=== PATIENT | female | born 1985 ===

== ENCOUNTER → 2022-05-10 08:15 | Outpatient (BNVA) | payer OTHER, SELFPAY | PROVIDERS: PCP Physician Assistant; Visit Provider Internal Medicine Endocrinology, Diabetes & Metabolism | DX: C73 Malignant neoplasm of thyroid gland (principal) | CPT/HCPCS: 99202 ==

== ENCOUNTER 2022-05-22 10:02 | Outpatient (REF) | payer OTHER, SELFPAY ==
[2022-05-22 11:45] LABS: Thyroid Stimulating Hormone 0.07 uIU/mL (0.32-4.0)
== END 2022-05-22 10:03 | disposition home or self-care (01) ==
LOC: HO.LAB 10:02
PROVIDERS: Visit Provider Internal Medicine Endocrinology, Diabetes & Metabolism
DX: C73 Malignant neoplasm of thyroid gland (principal)
CPT/HCPCS: 36415; 84439; 84443

== ENCOUNTER 2022-09-28 17:38 | Emergency (ER) | payer OTHER, SELFPAY ==
[2022-09-28 18:18] VITALS: BP 104/72; PULSE 86; RESP 18; TEMP 36.7; O2SAT 99; BMI 32.3
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
[2022-09-28] MEDS: Acetaminophen 325 MG TABLET 650 MG PO (18:34)
[2022-09-28] MEDS: Ketorolac Tromethamine 15 MG/ML VIAL IM (19:26)
== END 2022-09-28 19:35 | disposition home or self-care (01) ==
PROVIDERS: Emergency Provider Emergency Medicine
DX: Z04.1 Encounter for examination and observation following transport accident (principal); M54.50 Low back pain, unspecified
CPT/HCPCS: 96372; 99283; 99284; J1885

== ENCOUNTER 2022-10-06 11:59 | Emergency (ER) | payer OTHER, SELFPAY ==
[2022-10-06 12:08] VITALS: BP 107/56; PULSE 97; RESP 19; TEMP 36.6; O2SAT 98; BMI 32.7
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
== END 2022-10-06 12:34 | disposition home or self-care (01) ==
PROVIDERS: Emergency Provider Emergency Medicine
DX: Z04.1 Encounter for examination and observation following transport accident (principal); M54.50 Low back pain, unspecified
CPT/HCPCS: 99282

== ENCOUNTER 2023-06-27 08:33 | Emergency (ER) | payer MEDICAID, SELFPAY ==
[2023-06-27 09:07] VITALS: BP 114/71; PULSE 92; RESP 16; TEMP 36.5; O2SAT 98; BMI 31.3
--- NOTE | 2023-06-27 09:56 | ED_ITS ---
HPI - General Adult General Chief complaint: Upper Respiratory Symptoms Stated complaint: Headache, cough Time Seen by Provider: 06/27/23 09:46 Source: patient Mode of arrival: ambulatory Limitations: no limitations History of Present Illness HPI narrative: 37-year-old female history of JESIKA on CPAP, thyroid cancer, presents with fatigue, malaise, myalgias, congestion, intermittent headaches ( feel like her typical, no trauma, dizziness, vision changes or weakness), dry cough x4 days. 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 She reports she just feels very tired and like she has no energy. Took a COVID test on Saturday which was negative. Denies chest pain, shortness of breath, nausea, vomiting, abdominal pain, vision changes, dizziness, weakness, fevers and chills Related Data Home Medications Medication Instructions Recorded Confirmed cetirizine 10 mg tablet 10 mg PO DAILY 05/10/22 05/10/22 cholecalciferol (vitamin D3) 1,250 1,250 mcg PO QWEEK 05/10/22 05/10/22 mcg (50,000 unit) capsule clonazepam 0.5 mg tablet 0.5 mg PO DAILY PRN 05/10/22 05/10/22 divalproex 250 mg tablet,delayed 250 mg PO BID 05/10/22 05/10/22 release methocarbamol 500 mg tablet 500 mg PO 05/10/22 05/10/22 zolpidem 10 mg tablet 10 mg PO BEDTIME insomnia 05/10/22 05/10/22 Previous Rx's Medication Instructions Recorded levothyroxine 75 mcg tablet 75 mcg PO DAILY #30 tabs 05/22/22 cyclobenzaprine 5 mg tablet 5 mg PO TID PRN muscle spasm 7 09/28/22 days #21 tabs acetaminophen 325 mg capsule 325 mg PO Q4H PRN pain #30 caps 06/27/23 (Tylenol) albuterol sulfate 90 mcg/actuation 2 inh inhalation Q4-6H PRN 06/27/23 breath activated powder inhaler shortness of breath or wheezing #1 ea benzonatate 100 mg capsule 100 mg PO BID PRN cough #20 caps 06/27/23 prednisone 20 mg tablet 40 mg (2 x 20 mg) PO DAILY 5 days 06/27/23 #10 tabs Allergies Allergy/AdvReac Type Severity Reaction Status Date / Time cat dander Allergy Itching Verified 06/27/23 09:07 Review of Systems Review of Systems: Yes all other systems are reviewed and are negative [facility] Past Medical History Attestation statement: The following information was validated with the patient. Source: old records reviewed and nursing notes reviewed Medical History Thyroid cancer Surgical History History of thyroid surgery History of surgery Hx of cholecystectomy Family History Family History Mother Hypertension Father No known health problems Maternal Grandmother Hypertension Heart attack Social History Social History Household Members: Family Household Members Other:: 2 sons Alcohol intake: current Alcohol intake frequency: holidays/special occasions only Patient Tobacco Use Status: Never used Tobacco Advance Directives: No Advance Directives Information Provided: No Physical Exam ED Vital Signs: Vital Signs - 24 hr 06/27/23 09:07 Temperature 97.7 F Pulse Rate 92 Respiratory Rate 16 Blood Pressure 114/71 Pulse Oximetry 98 Oxygen Delivery Method Room Air BMI result Body Mass Index 31.3 vss Appearance: Alert.? Oriented X3.? No acute distress.? Head: Normocephalic, atraumatic, no step-offs or deformities Eyes: Pupils equal, round and reactive to light.? ENT: Pharynx normal.? Neck: Normal inspection.? Neck supple.? CVS: Normal heart rate and rhythm.? Pulses normal.? Respiratory: No respiratory distress.? Breath sounds normal.? Abdomen: Soft and nontender.? Skin: Skin warm and dry.? Normal skin color.? Normal skin turgor.? Extremities: No lower extremity edema.? No calf ttp. 5/5 strength to bilateral upper and lower extremities Neuro: Oriented X 3.? No motor deficit.? No sensory deficit. CN 2-12 intact Course Reevaluation(s) Reevaluation #1: Flu/COVID/RSV pending. Likely viral illness. Will call patient if results are positive. Educated patient on diagnosis and treatment plan, answered all question, patient verbalizes understanding. At this time patient will be discharged home, advised to return with new or worsening symptoms. Educated on worrisome signs and symptoms and when to return. At this time I feel comfortable discharge home. Time: 10:02 Reevaluation #2: + influenza patient called no answer --> no indication for tamifly sx > 48 hours no change in plan. Time: 10:30 Medical Decision Making Medical Decision Making [facility] Narrative: 37-year-old female presents with upper respiratory symptoms for the past 4 days. Physical exam benign Likely viral illness flu versus COVID versus RSV. Unlikely intracranial hemorrhage, stroke, posterior stroke, pneumonia, PE, ACS, dissection. Other differentials include bronchitis. Plan at this time viral testing Differential Diagnosis Differential Diagnoses: The differential diagnosis associated with the presentation includes Likely viral illness flu versus COVID versus RSV. Unlikely intracranial hemorrhage, stroke, posterior stroke, pneumonia, PE, ACS, dissection. Other differentials include bronchitis. Admission/Observation Consideration of admission/observation: Escalation of care including admission/observation considered No indication Lab Data [facility] Lab Attestation statement: I reviewed the patient's lab results. Labs: Lab Results 06/27/23 Range/Units 09:24 Influenza Type A (PCR) POSITIVE A (Negative) Influenza Type B (PCR) NEGATIVE (Negative) RSV RNA Qual (PCR) NEGATIVE (Negative) SARS-CoV-2 RNA (RT-PCR) NEGATIVE (Negative) External Record Review External record reviewed: Inpatient record, Office record, Outpatient record, Prior outpatient labs, Prior outpatient radiology, Primary care record and Outside ED record Prescription Management I considered prescription management with: Other (Prednisone, albuterol.) Chronic Conditions Patient?s care impacted by: Other (Thyroid cancer) Critical Care Time Critical Care Time Critical Care Time: No Discharge Plan Discharge Clinical Impression: Upper respiratory infection Patient Disposition: Home, Self-Care Instructions: Upper Respiratory Infection (ED), Viral Syndrome (ED) Additional Instructions: Take your medications as prescribed. If you were prescribed antibiotics today, it is important that you take your medication to their entirety, do not skip any doses, do not finish them early. Follow-up with your primary care provider this week. Return to the emergency department with new or worsening symptoms. Such as fevers, chills, chest pain, shortness of breath, nausea, vomiting, dizziness, headache, vision changes, lethargy In case of emergency call 911 Benzonatate Perles have been sent for cough. And so has albuterol. Prescriptions: New benzonatate 100 mg capsule 100 mg PO BID PRN (Reason: cough) Qty: 20 0RF albuterol sulfate 90 mcg/actuation aerosol powdr breath activated 2 inh inhalation Q4-6H PRN (Reason: shortness of breath or wheezing) Qty: 1 0RF prednisone 20 mg tablet 40 mg PO DAILY 5 Days Qty: 10 0RF acetaminophen [Tylenol] 325 mg capsule 325 mg PO Q4H PRN (Reason: pain) Qty: 30 0RF No Action levothyroxine 75 mcg tablet 75 mcg PO DAILY Qty: 30 5RF cyclobenzaprine 5 mg tablet 5 mg PO TID PRN (Reason: muscle spasm) 7 Days Qty: 21 0RF methocarbamol 500 mg tablet 500 mg PO cholecalciferol (vitamin D3) 1,250 mcg (50,000 unit) capsule 1,250 mcg PO QWEEK zolpidem 10 mg tablet 10 mg PO BEDTIME clonazepam 0.5 mg tablet 0.5 mg PO DAILY PRN divalproex 250 mg tablet,delayed release (DR/EC) 250 mg PO BID cetirizine 10 mg tablet 10 mg PO DAILY Referrals: Tra Dubon PA [Primary Care Provider] - 3 days Stand Alone Forms: Work/School Release Interventions: ED Discharge Assessment Last Done: 06/27/23 10:09 Discharge Date/Time: 06/27/23 10:10
[2023-06-27 10:25] LABS: Influenza A PCR POSITIVE (Negative); Influenza B PCR NEGATIVE (Negative); Resp Syncy Virus RNA Qual PCR NEGATIVE (Negative); SARS COV2 PCR INHOUSE NEGATIVE (Negative)
== END 2023-06-27 10:10 | disposition home or self-care (01) ==
PROVIDERS: Emergency Provider Emergency Medicine; PCP Physician Assistant
DX: J06.9 Acute upper respiratory infection, unspecified (principal); R51.9 Headache, unspecified; R05.9 Cough, unspecified; M79.10 Myalgia, unspecified site; Z11.52 Encounter for screening for COVID-19; Z20.822 Contact with and (suspected) exposure to COVID-19
CPT/HCPCS: 0241U; 99282; 99283

== ENCOUNTER 2024-01-26 09:16 | Emergency (ER) | payer OTHER, SELFPAY ==
[2024-01-26 09:30] VITALS: BP 101/67; PULSE 78; RESP 18; TEMP 36.8; O2SAT 100; BMI 34.3
--- NOTE | 2024-01-26 09:37 | ED_ITS ---
HPI - Eye Problem General Chief complaint: Eye Problems Stated complaint: r eye swelling Time Seen by Provider: 01/26/24 09:35 Source: patient Mode of arrival: ambulatory Limitations: no limitations History of Present Illness ED Provider: Kedar SINHA Narrative: Patient is a 38-year-old female presenting to the emergency department with complaint of right eye swelling, itching and drainage. Reports symptoms began on Saturday, saw PCP and was prescribed ofloxacin drops. Has been using these as prescribed but swelling worsened and I is still pruritic. Reports clear drainage from eye with crusting. Denies pain with eye movements. Denies changes in vision. Denies foreign body sensation. chief complaint: eye redness Onset (ago): day(s) Onset description: sudden Duration: constant Location: right eye Eye Symptoms: redness, itching and discharge Mechanism: none Associated symptoms: none Treatments Prior to Arrival: other Related Data Home Medications ?Medication ?Instructions ?Recorded ?Confirmed cetirizine 10 mg tablet 10 mg PO DAILY 05/10/22 05/10/22 cholecalciferol (vitamin D3) 1,250 1,250 mcg PO QWEEK 05/10/22 05/10/22 mcg (50,000 unit) capsule clonazepam 0.5 mg tablet 0.5 mg PO DAILY PRN 05/10/22 05/10/22 divalproex 250 mg tablet,delayed 250 mg PO BID 05/10/22 05/10/22 release methocarbamol 500 mg tablet 500 mg PO 05/10/22 05/10/22 zolpidem 10 mg tablet 10 mg PO BEDTIME insomnia 05/10/22 05/10/22 Previous Rx's ?Medication ?Instructions ?Recorded levothyroxine 75 mcg tablet 75 mcg PO DAILY #30 tabs 05/22/22 cyclobenzaprine 5 mg tablet 5 mg PO TID PRN muscle spasm 7 09/28/22 days #21 tabs acetaminophen 325 mg capsule 325 mg PO Q4H PRN pain #30 caps 06/27/23 (Tylenol) albuterol sulfate 90 mcg/actuation 2 inh inhalation Q4-6H PRN 06/27/23 breath activated powder inhaler shortness of breath or wheezing #1 ea benzonatate 100 mg capsule 100 mg PO BID PRN cough #20 caps 06/27/23 prednisone 20 mg tablet 40 mg (2 x 20 mg) PO DAILY 5 days 06/27/23 #10 tabs amoxicillin 875 mg-potassium 1 tab PO BID #14 tabs 01/26/24 clavulanate 125 mg tablet Allergies Allergy/AdvReac Type Severity Reaction Status Date / Time cat dander Allergy Itching Verified 01/26/24 09:33 Review of Systems Review of Systems: As per HPI. Yes all other systems are reviewed and are negative Constitutional: Constitutional: Reports as per HPI [facility] Past Medical History Medical History Thyroid cancer Surgical History History of thyroid surgery History of surgery Hx of cholecystectomy Family History Family History Mother Hypertension Father No known health problems Maternal Grandmother Hypertension Heart attack Social History Social History Household Members: Family Household Members Other:: 2 sons Alcohol intake: current Alcohol intake frequency: holidays/special occasions only Patient Tobacco Use Status: Never used Tobacco Advance Directives: No Advance Directives Information Provided: No Do you have a plan to hurt others: No Plan Physical Exam Vital Signs: Vital Signs: Last Vital Signs Temp 98.3 F 01/26/24 09:30 Pulse 78 01/26/24 09:30 Resp 18 01/26/24 09:30 BP 101/67 01/26/24 09:30 Pulse Ox 100 01/26/24 09:30 O2 Del Method Room Air 01/26/24 09:30 BMI result Body Mass Index 34.3 Vital signs have been reviewed and appear to be correct. Blood pressure normal. Heart rate normal. Respiratory rate normal. Temperature normal. Oxygen saturation normal. Const: General: cooperative, healthy appearing and no acute distress Or ientation/consciousness: oriented to person, oriented to place, oriented to time and patient oriented x3 Limitations: no limitations HEENT: Head: Yes normocephalic and Yes atraumatic Ears: external ears normal General nose exam: Normal external nose present Face and sinus: Yes face symmetric Mouth: oropharynx normal and moist mucous membranes Throat: Yes uvula midline Eyes: Periorbital: periorbital findings abnormal right periorbital swelling and periorbital erythema; no tenderness and no crepitus Conjunctivae: conjunctival abnormal right conjunctival injection diffuse Sclerae: sclerae normal Corneas: corneas normal Pupils: Equal, round and reactive pupils present EOM: EOMs intact bilaterally (No pain with EOMs) Neck: Neck: Yes normal visual inspection and Yes supple Resp: Effort & Inspection: normal respiratory effort and able to speak in complete sentences Auscultation: clear to auscultation bilaterally Cardio: Rate: regular rate Rhythm: regular rhythm Heart sounds: S1 normal heart sound present and S2 normal heart sound present GI: Palpation (GI): Soft to palpation and nontender Auscultation: normoactive bowel sounds : General: Yes no CVA tenderness Back/Spine/Pelvis: Back: no CVA tenderness Skin: General skin exam: elasticity normal and turgor normal Neuro: General: oriented to person, oriented to place, oriented to time, patient oriented x3, moves all extremities, no focal motor deficits and CN's II- XI intact bilaterally Cranial nerves: Yes Equal, round and reactive pupils present Cognition (Neuro): normal cognition Extrem: General: Yes full ROM, Yes no pedal edema and Yes no calf tenderness Psych: Mental Status: mental status grossly normal Affect: normal affect Thought process: Normal thought process present Medical Decision Making Medical Decision Making MDM Narrative: Patient is a 38-year-old female presenting to the emergency department with complaint of right eye swelling, itching and drainage. On exam patient is awake, A+Ox3, VS WNL, afebrile, normal neurological exam without focal deficits, physical exam findings as above. Given reported symptoms and physical exam findings, initial differential includes conjunctivitis, periorbital cellulitis. Do not suspect orbital cellulitis. Will treat patient with course of Augmentin. Advised patient to continue using ofloxacin drops that were previously prescribed to her. Recommended warm compresses several times daily and stressed the importance of good hand hygiene. Return precautions discussed at bedside. Follow-up with PCP, ophthalmology as needed. Patient verbalized understanding of and agreement with plan. Differential Diagnosis Differential Diagnoses: The differential diagnosis associated with the presentation includes As per MDM. External Record Review External record reviewed: Inpatient record, Office record and Outpatient record Prescription Management I considered prescription management with: Antibiotic Discharge Plan Discharge Clinical Impression: Preseptal cellulitis of right eye Patient Disposition: Home, Self-Care Instructions: Periorbital Cellulitis in Adults (ED) Additional Instructions: You were evaluated in the emergency department today for right eye swelling. You are being treated for a skin infection called periorbital cellulitis with antibiotics. Complete the full course of antibiotics as prescribed. Continue to use your previously prescribed eyedrops. Follow up with your primary care provider/ammunition specialist. Return to the emergency department if you develop worsening swelling, pain with eye movements, fever, changes in vision or any other new or concerning symptoms. Prescriptions: New amoxicillin-pot clavulanate 875-125 mg tablet 1 tab PO BID Qty: 14 0RF No Action levothyroxine 75 mcg tablet 75 mcg PO DAILY Qty: 30 5RF cyclobenzaprine 5 mg tablet 5 mg PO TID PRN (Reason: muscle spasm) 7 Days Qty: 21 0RF benzonatate 100 mg capsule 100 mg PO BID PRN (Reason: cough) Qty: 20 0RF albuterol sulfate 90 mcg/actuation aerosol powdr breath activated 2 inh inhalation Q4-6H PRN (Reason: shortness of breath or wheezing) Qty: 1 0RF prednisone 20 mg tablet 40 mg PO DAILY 5 Days Qty: 10 0RF acetaminophen [Tylenol] 325 mg capsule 325 mg PO Q4H PRN (Reason: pain) Qty: 30 0RF methocarbamol 500 mg tablet 500 mg PO cholecalciferol (vitamin D3) 1,250 mcg (50,000 unit) capsule 1,250 mcg PO QWEEK zolpidem 10 mg tablet 10 mg PO BEDTIME clonazepam 0.5 mg tablet 0.5 mg PO DAILY PRN divalproex 250 mg tablet,delayed release (DR/EC) 250 mg PO BID cetirizine 10 mg tablet 10 mg PO DAILY Referrals: Phil Reilly [Physician] - Print Language: Romanian
[2024-01-26 10:27] VITALS: BP 101/67; PULSE 78; RESP 18; TEMP 36.8; O2SAT 100
== END 2024-01-26 10:40 | disposition home or self-care (01) ==
PROVIDERS: Emergency Provider Emergency Medicine Emergency Medical Services
DX: L03.213 Periorbital cellulitis (principal); H57.11 Ocular pain, right eye
CPT/HCPCS: 99282

== ENCOUNTER 2024-03-31 15:17 | Outpatient (REF) | payer OTHER, SELFPAY ==
[2024-03-31 18:49] LABS: Free T4 (Free Thyroxine) 1.13 ng/dL (0.71-1.85); Thyroid Stimulating Hormone 0.08 uIU/mL (0.32-4.0)
== END 2024-03-31 15:18 | disposition home or self-care (01) ==
LOC: HO.LAB 15:17
PROVIDERS: PCP Physician Assistant; Visit Provider Internal Medicine Endocrinology, Diabetes & Metabolism
DX: C73 Malignant neoplasm of thyroid gland (principal)
CPT/HCPCS: 36415; 84439; 84443

== ENCOUNTER 2024-04-01 14:33 | Outpatient (AMB) | payer OTHER, SELFPAY ==
--- NOTE | 2024-04-01 14:38 | MHC.OFFVIS ---
Vital Signs 04/01/24 14:39 Height 4 ft 11 in Weight 165 lb 12.602 oz BMI 33.5 BP 102/72 Blood Pressure Location Rt brachial Position Sitting Pulse 93 Pulse Source Pulse Oximeter Intake Visit Reasons: post-surgical hypothyroidism-Conf Intake Note: Patient present today for post-surgical Hypothyroidism follow up. Associate Juvenile Court Judge Required: Yes Associate Juvenile Court Judge Language: Tool Keeper Services: Associate Juvenile Court Judge Present Associate Juvenile Court Judge Name: Donaldo Information Interpreted: non-clinical & clinical Accompanied by: Self / Same As Patient Allergies cat dander Allergy (Verified 04/01/24 14:40) Itching HPI Comments Details: 36 YO F with PMHx thyroid cancer who is seen in consultation at the request of his PCP for Hyothyroidism. 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 Denies + fatigue, -weight gain, -cold intolerance, -dry skin, -hair loss, -constipation. There is no hx of hyperlipidemia . Denies obstructive sx of goiter . Denies consuming any kelp or seaweed. Denies taking amiodarone. Denies current or desiring to become in near future. Compliance with meds and taken correctly: Menses: nl Biotin: Yes Labs: [facility] Medical History Thyroid cancer Surgical History History of thyroid surgery History of surgery Hx of cholecystectomy Family History Mother Hypertension Father No known health problems Maternal Grandmother Hypertension Heart attack Social History Household Members: Family Household Members Other:: 2 sons Alcohol intake: current Alcohol intake frequency: holidays/special occasions only Patient Tobacco Use Status: Never used Tobacco Physical Exam Vital Signs: BMI result Body Mass Index 33.5 Const Other: Healed scar status post left lobectomy. Right lobe without the presence of palpable nodules Assessment & Plan Assessment & Plan (1) Thyroid cancer: Code(s): C73 - Malignant neoplasm of thyroid gland Category: Medical Plan: Is a 38-year-old female status post left lobectomy with 1 mm micro papillary cancer. Currently on levothyroxine 75 mcg with suppressed TSH.? Right lobe containing sufficient tissue to maintain euthyroidism Plan is to have the patient check and confirm the dose of levothyroxine and if she is taking 75 mcg to hold levothyroxine and recheck TSH and free T4 in 4 weeks. If TSH rises, can reinitiate levothyroxine 50 mcg. If patient is on 88 mcg, I told her to call me and I will reduce the dose down to 75 recheck TSH in 4 weeks. We will also order neck ultrasound in light of the history of micro papillary cancer Orders: Orders Free T4 (Free Thyroxine) 4 Weeks C73 - Malignant neoplasm of thyroid gland Thyroid Stimulating Hormone 4 Weeks C73 - Malignant neoplasm of thyroid gland US thyroid Today C73 - Malignant neoplasm of thyroid gland Coding Level of Care Code Est Pt Level 3 (00594) Diagnoses Thyroid cancer C73
[2024-04-01 14:39] VITALS: BP 102/72; PULSE 93; BMI 33.5
== END 2024-04-01 15:04 | disposition home or self-care (01) ==
PROVIDERS: PCP Physician Assistant; Visit Provider Internal Medicine Endocrinology, Diabetes & Metabolism
DX: C73 Malignant neoplasm of thyroid gland (principal)
CPT/HCPCS: 99213

== ENCOUNTER → 2024-04-01 14:33 | Outpatient (BNVA) | payer OTHER, SELFPAY | PROVIDERS: PCP Physician Assistant; Visit Provider Internal Medicine Endocrinology, Diabetes & Metabolism | DX: C73 Malignant neoplasm of thyroid gland (principal) | CPT/HCPCS: 99212 ==

== ENCOUNTER 2024-04-14 13:26 | Outpatient (REF) | payer OTHER, SELFPAY | END 2024-04-14 13:27 | disposition home or self-care (01) | LOC: HO.US 13:26 | PROVIDERS: PCP Physician Assistant; Visit Provider Internal Medicine Endocrinology, Diabetes & Metabolism | DX: C73 Malignant neoplasm of thyroid gland (principal) | CPT/HCPCS: 76536 ==

== ENCOUNTER 2024-05-19 16:14 | Outpatient (REF) | payer OTHER, SELFPAY ==
[2024-05-19 17:36] LABS: Free T4 (Free Thyroxine) 1.03 ng/dL (0.71-1.85); Thyroid Stimulating Hormone 0.43 uIU/mL (0.32-4.0)
--- OUTSIDE RECORDS SUMMARY | 2024-05-19 17:49 | XMS_ITS | Clinical Summary ---
Author Organization [facility] Address [address] [place] [address] Care Team Providers Care Lead Informatica Developer Name Role Phone Tra Dubon Primary Care Provider [phone] Source Comments PLEASE NOTE, if this patient is a minor, it may be UNLAWFUL to discuss sensitive information that is contained in these records (such as FAMILY PLANNING, MENTAL HEALTH or SUBSTANCE ABUSE) with the minor patient's parent or other person without the patient's specific authorization.[facility] Allergies No known active allergies Medications metFORMIN XR (GLUCOPHAGE-XR) 500 mg 24 hr tablet Take 500 mg by mouth 1 Active cholecalciferol, vitamin D3, (VITAMIN D3) 1,250 mcg (50,000 unit) capsuleIndicatio ns:Vitamin D deficiency Take 1 Capsule by mouth once a week 30 Capsule 1 3 Active divalproex (DEPAKOTE) [address] tablet TOME KURT TABLETA DOS VECES AL D A 3 Active zolpidem (AMBIEN) 10 mg tablet TOME KURT TABLETA TODOS LOS D AL ACOSTARSE FOR SLEEP 3 Active clonazePAM (KLONOPIN) 0.5 mg tablet TOME KURT TABLETA TODOS LOS D CUANDO SEA NECESARIO 2 Active SUMAtriptan (IMITREX) 25 mg tabletIndication s:Other migraine without status migrainosus, not intractable Take 1 Tablet by mouth once as needed for migraine for up to 1 dose 12 Tablet 1 3 Active zaleplon (SONATA) 10 mg capsule TOME KURT C PSULA TODOS LOS D AL ACOSTARSE 3 Active levothyroxine (SYNTHROID, LEVOXYL) 75 mcg tabletIndication s:Hypothyroidism , unspecified type Take 1 Tablet by mouth once daily 90 Tablet 1 4 Active acetaminophen (TYLENOL 8 HOUR) 650 mg CR tabletIndication s:Muscle spasm Take 1 Tablet by mouth every 8 (eight) hours as needed for pain 60 Tablet 2 4 Active cyclobenzaprine (AMRIX) 15 mg 24 hr capsuleIndicatio ns:Chronic tension-type headache, not intractable,Hist ory of migraine headaches Take 1 Capsule by mouth once daily as needed for muscle spasms 30 Capsule 1 4 Active amoxicillin-pot clavulanate (AUGMENTIN) 875-125 mg per tabletIndication s:Upper respiratory tract infection, unspecified type Take 1 Tablet by mouth 2 (two) times daily 14 Tablet 4 Active clonazePAM (KLONOPIN) 1 mg tablet Take 1 Tablet by mouth 2 (two) times daily TOME KURT TABLETA TODOS LOS D CUANDO SEA NECESARIO 60 Tablet 2 4 Active multivit-mineral -iron-lutein (ATHRU Z SELECT WOMEN'S TAB) per tabletIndication s:Chronic bilateral low back pain without sciatica,Muscle spasm,Papillary carcinoma of thyroid (HCC-CMS) Take 1 Tablet by mouth once daily 90 Tablet 2 4 Active cetirizine (ZYRTEC) 10 mg tabletIndication s:Chronic seasonal allergic rhinitis TOME KURT TABLETA TODOS LOS HAAS 90 Tablet 1 4 Active ferrous sulfate 325 mg (65 mg iron) tabletIndication s:Iron deficiency anemia, unspecified iron deficiency anemia type Take 1 Tablet by mouth once daily with breakfast 90 Tablet 3 4 Active levothyroxine 88 mcg tabletIndication s:Hypothyroidism , unspecified type Take 1 Tablet by mouth once daily 90 Tablet 1 4 Active cyclobenzaprine (FLEXERIL) 10 mg tabletIndication s:Chronic bilateral low back pain without sciatica,Muscle spasm Take 1 Tablet by mouth 2 (two) times daily as needed for muscle spasms 30 Tablet 1 4 Active lidocaine (LIDODERM) 5 % patchIndications :Chronic bilateral low back pain without sciatica Place 1 Patch onto the skin daily. Apply 1 patch to the affected area for a maximum of 12 hours, followed by removal for 12 hours. 30 Patch 1 4 Active Active Problems Problem Noted Date Diagnosed Date Insomnia 03/28/2022 Overweight 03/28/2022 Papillary carcinoma of thyroid (HCC-CMS) 022 Overview (03/28/2022): 1mm papillary microcarcinoma without extrathyroid involvement s/p left lobectomy in Apr 2014 per endo note 09/29/14 Leg cramps 03/28/2022 Urinary frequency 03/28/2022 Routine adult health maintenance 03/28/2022 Anemia 02/18/2021 Overview (03/28/2022): Last Assessment & Plan: Baseline hemoglobin around 11-13 range Today morning hemoglobin noted at 9.4 Patient reports that last day of menstruation was last Saturday 1 week ago. Monitor CBC to keep hemoglobin more than 7. Transaminitis 02/18/2021 Overview (03/28/2022): Last Assessment & Plan: Presented with transaminitis secondary to gallstone pancreatitis. Improving. Monitor CMP. Acute gallstone pancreatitis 02/17/2021 Overview (03/28/2022): Last Assessment & Plan: 35 yo female patient presented with complaining of abdominal pain, nausea, vomiting of 1 week duration. Lipase [address] --> 3900 CT abdomen pelvis report noted with finding consistent of pancreatitis, noted with gallstones without finding of cholecystitis. MRI/MRCP positive for choledocholithiasis. Transaminitis improving. Symptoms secondary to acute gallstone pancreatitis. Patient denies any previous episode. NPO for now. Continue with IV LR 250 cc /hr Continue with p.o. And IV analgesics p.r.n. Plan for ERCP today as well as laparoscopic cholecystectomy today. Continue with IV antiemetic. GI following. General surgery following. Patient is agreeable with above plan. Obese 02/17/2021 Overview (03/28/2022): Last Assessment & Plan: Counseled on weight loss and lifestyle modification. Gallstone 02/17/2021 Overview (03/28/2022): Last Assessment & Plan: CT report noted with gallstone without cholecystitis. MRI/MRCP positive for choledocholithiasis. NPO. Continue with IV and oral analgesics. Plan for ERCP today per GI recommendation. Plan for laparoscopic cholecystectomy today per surgery team as well. Patient is agreeable with above plan. GI following. Hypothyroidism 02/17/2021 Overview (03/28/2022): Last Assessment & Plan: Resume home dose of levothyroxine 77 mcg daily. Anxiety and depression 03/21/2020 Numbness in both hands 01/13/2020 B12 deficiency 11/11/2018 Inappropriately high serum insulin 08/11/2018 Abnormal facial hair 08/07/2018 Other fatigue 08/07/2018 Prediabetes 08/07/2018 Vitamin D deficiency 08/07/2018 Chronic seasonal allergic rhinitis 05/08/2017 Chronic tension-type headache, not intractable 0 05/08/2017 History of migraine headaches 05/08/2017 Postsurgical hypothyroidism 05/08/2017 History of partial thyroidectomy 05/26/2014 Overview (03/28/2022): DATE:05/26/2014 DIAGNOSIS: Hyperfunctional left thyroid lobe nodule. PROCEDURES: Left thyroid lobectomy. SURGEON: Billy Santos M.D. CENTER SPECIALISTS: Kerline Burch M.D. Resolved Problems Problem Noted Date Diagnosed Date Resolved Date Acute bacterial conjunctivitis of right eye 01/22/2024 02/21/2024 Encounters Date Type Department Care Team Description 04/14/2024 Interim Notes [address] [phone] Tra Dubon PA Family history of breast cancer (Primary Dx) 03/24/2024 10:20 AM EST Office Visit [address] [phone] Suresh Parnell RN Low back pain without sciatica, unspecified back pain laterality, unspecified chronicity (Primary Dx) 03/24/2024 Travel 03/18/2024 3:00 PM EST Office Visit [address] [phone] Tra Dubon PA Routine general medical examination at a health care facility (Primary Dx); Chronic bilateral low back pain without sciatica; Muscle spasm; Iron deficiency anemia, unspecified iron deficiency anemia type; Immunization due; Hypothyroidism, unspecified type 03/18/2024 Erroneous Telephone Encounter [address] [phone] Suresh Parnell RN 03/18/2024 Travel from Last 3 Months Immunizations Name Administration Dates Next Due Flu, Cell Culture based, Pre servative Free, 6m+, Flucelvax 02/09/2022 Flu, Preservative Free 02/17/2021,02/23/2020 Hep B,adult,adjuvanted (HEPLISAV) 10/16/2022 Influenza (FLUBLOK),recombinant,injectable,preservative Free 03/18/2024 PNEUMOCOCCAL CONJUGATE PCV 20 (Prevnar) 10/17/19 23 PPD 08/25/2018,08/11/2018 TDAP 08/04/2021,12/12/2015 ZOSTER VACCINE, RECOMBINANT (SHINGRIX) 3 Social History Tobacco Use Types Packs/Day Years Used Date Smoking Tobacco: Never Smokeless Tobacco: Never Tobacco Cessation:Counseling Given: Not Answered Alcohol Use Standard Drinks/Week Comments Yes 0 (1 standard drink = 0.6 oz pur e alcohol) Social Connections Answer Date Recorded Connectedness 1 03/18/2024 Financial Resource Strain Answer Date R ecorded Financial Resource Strain 1 2023 Stress Answer Date Recorded Stress 1 03/18/2024 Physical Activity Answer Date Recorded Physical Activity 0 10/08/2022 Food Insecurity Answer Date Recorded Food 1 03/18/2024 Transportation Needs Answer Date Record ed Transportation 1 03/18/2024 Housing Stability Answer Date Recorded Housing 1 03/18/2024 Safety and Environment Answer Date Travis rded Safety 0 10/16/2022 Utilities Answer Date Recorded Utilities 1 03/18/2024 Employment Answer Date Recorded Stress 0 10/08/2022 Comments Unknown Sex and Gender Information Value Date Recorded Sex Assigned at Female 11/14/2022 7:55 AM PDT Legal Sex Female 9:51 AM PDT Gender Identity Female 11/14/2022 7:55 AM PDT Sexual Orientation Straight 03/28/2022 1: 49 PM PST Last Filed Vital Signs Vital Sign Reading Time Taken Comments Blood Pressure 107/71 03/18/2024 3:07 PM EST Pulse 60 03/18/2024 3:07 PM EST Temperature 36.8 ??C (98.3 ??F) 03/18/2024 3:07 PM ES T Respiratory Rate 15 03/18/2024 3:07 PM EST Oxygen Saturation 95% 03/18/2024 3:07 PM EST Inhaled Oxygen Concentration - - Weight 74.7 kg (164 lb 9.6 oz) 03/18/2024 3:07 P M EST Height 149.9 cm (4' 11 ) 03/18/2024 3:07 PM EST Body Mass Index 33.25 03/18/2024 3:07 PM EST Plan of Treatment Health Maintenance Due Date Last Done Comments HPV Screening 1987 Pap + HPV 1987 Cervical Cancer Screening 11/28/2008 Pap Smear 11/28/2008 Imm-Hepatitis B (2 of 2 - Cp G 2-dose series) 11/13/2022 10/16/2022 [id number] ( season) 2023 02/09/2022, 11/21/2020, 10/24/2020 Alcohol and Drug Screen 04/29/2024 03/18/20 24, 10/16/2022, 03/28/2022 Depression Monitoring 06/18/2024 03/18/2024 , 03/18/2024, 10/16/2022, Additional history exists Diabetes Screening 09/16/2024 09/17/2023, 0 06/04/2023, 08/01/2022, Additional history exists Annual Preventive Care Visit 03/18/2025, 10/16/2022, 03/28/2022 Hypertension Screening (#1) 03/18/2025 Relationship Safety Screening/Counseling 03/18/2025 03/18/2024, 10/16/2022, 03/28/2022 Tobacco Screening 03/18/2025 03/18/2024 Lipid Screening 09/16/2026 09/17/2023, 09/28, 12/05/2021 Imm-DTaP/Tdap/Td (3 - Td or Tdap) 08/05/2031 022, 12/12/2015 HIV Screening Completed 08/01/2022, 05/23/2020 Hepatitis C Screening Completed 08/01/2022, 021 Imm-Influenza Completed 03/18/2024, 01/27, 02/17/2021, Additional history exists Cervical Ablation/Cold-Knife Conization Discontinued Cervical Cryotherapy Discontinued Colposcopy Discontinued Endometrial Biopsy Discontinued Excision/Leep Discontinued HPV Genotyping Discontinued Vaginal Pap Discontinued Vulvoscopy Discontinued Procedures Procedure Name Priority Date/Time Associated Diagnosis Comments REFERRAL SCANNED DOCUMENT 04/01/2024 3:00 AM EST LAB SCANNED DOCUMENT 03/31/2024 3:00 AM EST CARD SCANNED DOCUMENT 03/24/2024 3:00 AM EST COMPREHENSIVE METABOLIC PANEL Routine 09/17/2023 9:23 AM EDT Fatigue, unspecified type LIPID PANEL Routine 09/17/2023 9:23 AM EDT Fatigue, unspecified type HIV 1/2 AG & AB W/RFLX (4TH GEN) Routine 08/01/2022 4:19 PM EDT Routine adult health maintenance HEPATITIS C AB W/RFLX HCV RNA, QT, RT PCR Routine 08/01/2022 4:19 PM EDT Routine adult health maintenance from Last 3 Months or Most Recently Relevant to Health Maintenance Results * REFERRAL SCANNED DOCUMENT (04/01/2024 3:00 AM EST) 04/01/2024 3:00 AM EST us Tra Jagdish PA SCAN REFERRAL Final Result * LAB SCANNED DOCUMENT (03/31/2024 3:00 AM EST) 03/31/2024 3:00 AM EST us Tra Jagdish PA SCAN LAB Final Result * CARD SCANNED DOCUMENT (03/24/2024 3:00 AM EST) 03/24/2024 3:00 AM EST us Dutta Jagdish PA SCAN ECGS Final Result * LIPID PANEL (09/17/2023 9:23 AM EDT) CHOLESTEROL, TOTAL 151 <200 mg/dL [facility] HDL CHOLESTEROL 54 > OR = 50 mg/dL [facility] TRIGLYCERIDES 69 <150 mg/dL [facility] LDL-CHOLESTEROL 82 99 mg/dL (calc) [email or web address] Comment: Reference range: <100 Desirable range <100 mg/dL for primary prevention; ?? <70 mg/dL for patients with CHD or diabetic patients with > or = 2 CHD risk factors. LDL-C is now calculated using the Eder-Soni calculation, which is a validated novel method providing better accuracy than the Friedewald equation in the estimation of LDL-C. Eder SS et al. NELLY. 2013;310(19): 6798-2576 (http://education.whodoyou/faq/ZQY343) CHOL/HDLC RATIO 2.8 <5.0 (calc) [facility] NON-HDL CHOLESTEROL 97 <130 mg/dL (calc) [facility] Comment: For patients with diabetes plus 1 major ASCVD risk factor, treating to a non-HDL-C goal of <100 mg/dL (LDL-C of <70 mg/dL) is considered a therapeutic option. Blood Blood / Unknown 09/17/2023 9 :23 AM EDT 09/17/2023 9:24 AM EDT Narrative [facility] - 09/18/2023 5:41 AM EDT FASTING:YES Damien Galarza PA-C LAB - BLOOD DRAW Final Result [facility] [address] [address], [employer] [facility] [address] [place] [address] * COMPREHENSIVE METABOLIC PANEL (09/17/2023 9:23 AM EDT) GLUCOSE 88 65 - 99 mg/dL [employer] [facility] Comment: ?Fasting reference interval UREA NITROGEN (BUN) 14 7 - 25 mg/dL [employer] [facility] CREATININE (blood) 0.71 0.50 - 0.97 mg/dL [employer] [facility] EGFR 114 > OR = 60 mL/min/1. 73m2 [employer] [facility] BUN/CREATININE RATIO SEE NOTE: [email or web address] Comment: ?? Not Reported: BUN and Creatinine are within ?? reference range. ? SODIUM 137 135 - 146 mmol/L [employer] [facility] POTASSIUM 4.4 3.5 - 5.3 mmol/L [employer] [facility] CHLORIDE 104 98 - 110 mmol/L [employer] [facility] CARBON DIOXIDE 26 20 - 32 mmol/L [employer] [facility] CALCIUM 8.8 8.6 - 10.2 mg/dL [employer] [facility] PROTEIN, TOTAL 7.3 6.1 - 8.1 g/dL [employer] [facility] ALBUMIN 4.3 3.6 - 5.1 g/dL [employer] [facility] GLOBULIN 3.0 1.9 - 3.7 g/dL (calc) [employer] [facility] ALBUMIN/GLOBULI N RATIO 1.4 1.0 - 2.5 (calc) [employer] [facility] BILIRUBIN, TOTAL 0.4 0.2 - 1.2 mg/dL [employer] [facility] ALKALINE PHOSPHATASE 65 31 - 125 U/L [employer] [facility] AST 14 10 - 30 U/L [employer] [facility] ALT 17 6 - 29 U/L [employer] [facility] Blood Blood / Unknown 09/17/2023 9 :23 AM EDT 09/17/2023 9:24 AM EDT Narrative [facility] - 09/18/2023 5:41 AM EDT FASTING:YES Damien Galarza PA-C LAB - BLOOD DRAW Edited Resul t - Final Performing Organization Address [facility]/ZIP Co de Phone Number [employer] [address] [address], [employer] [address] [address] * HEPATITIS C AB W/RFLX HCV RNA, QT, RT PCR (08/01/2022 4:19 PM EDT) HEPATITIS C ANTIBODY NON-REACT JACKIE NON-REACT JACKIE [employer] [facility] SIGNAL TO CUT-OFF 0.03 <1.00 [employer] [facility] Comment: HCV antibody was non-reactive. There is no laboratory evidence of HCV infection. In most cases, no further action is required. However, if recent HCV exposure is suspected, a test for HCV RNA (test code 02839) is suggested. For additional information please refer to http://education.Bridj/faq/SOE49b9 (This link is being provided for informational/ educational purposes only.) Blood Blood / Unknown 08/01/2022 4 :19 PM EDT 08/01/2022 4:19 PM EDT Tra GABRIEL LAB - BLOOD DRAW Edited Result - Final Performing Organization Address [facility] Co de Phone Number [employer] [address] [address], [employer] [address] [address] * HIV 1/2 AG & AB W/RFLX (4TH GEN) (08/01/2022 4:19 PM EDT) HIV AG/AB, 4TH GEN NON-REAC TIVE NON-REAC TIVE [employer] [facility] Comment: HIV-1 antigen and HIV-1/HIV-2 antibodies were not detected. There is no laboratory evidence of HIV infection. PLEASE NOTE: This information has been disclosed to you from records whose confidentiality may be protected by state law. ??If your state requires such protection, then the state law prohibits you from making any further disclosure of the information without the specific written consent of the person to whom it pertains, or as otherwise permitted by law. A general authorization for the release of medical or other information is NOT sufficient for this purpose. ?? For additional information please refer to http://education.Bridj/faq/YKZ344 (This link is being provided for informational/ educational purposes only.) The performance of this assay has not been clinically validated in patients less than 2 years old. Blood Blood / Unknown 08/01/2022 4 :19 PM EDT 08/01/2022 4:19 PM EDT Tra GABRIEL LAB - BLOOD DRAW Final Result Performing Organization Address City/State/[facility] Co de Phone Number [employer] [address] [place] [address], [employer] [address] [address] from Last 3 Months or Most Recently Relevant to Health Maintenance Insurance [employer] NET [employer] [facility] Member Subscriber Plan / Payer (Ef fective 2023-Present) Name:Ty Liu Relation to Subscriber:Self Name:Ty Liu Payer ID:[id number] Type:Indemnity Address: [address] [address] Care Teams Lead Informatica Developer Relationship Specialty Start Date End Date Tra Dubon PA [address] [place] [address] PCP - General FAMILY MEDICINE, PA 01/17/22
--- OUTSIDE RECORDS SUMMARY | 2024-05-19 17:49 | XMS_ITS | Encounter Summary ---
Author Organization [facility] Address [address] [place] [address] Care Team Providers Care Senior Java Architect Name Role Phone Tra Dubon Primary Care Provider [phone] Reason for Visit * Reason Onset Date Comments Prescription Refill Request 03/18/2024 Encounter Created in Error 03/18/2024 Encounter Details Date Type Department Care Team (Late st Contact Info) Description 03/18/2024 Erroneous Telephone Encounter [address] [phone] Suresh Parnell RN [address] [place] [address] Social History Tobacco Use Types Packs/Day Years Used Date Smoking Tobacco: Never Smokeless Tobacco: Never Alcohol Use Standard Drinks/Week Comments Yes 0 [...] Orientation Straight 03/28/2022 1: 49 PM PST COVID-19 Exposure Response Date Recorded In the last 10 days, have yo u been in contact with someone who was confirmed or suspected to have Coronavirus/COVID-19? No / Unsure 03/24/2024 10:17 AM EST documented as of this encounter Plan of Treatment Not on file documented as of this encounter Visit Diagnoses Not on filedocumented in this encounter Additional Health Concerns Assessment Noted Time PHQ-9 Depression Total Score: 5 03/18/20 24 3:10 PM PST documented as of this encounter Care Teams Senior Java Architect Relationship Specialty Start Date End Date Tra Dubon PA [address] [place] [address] PCP - General FAMILY MEDICINEHARVEY 01/17/22 documented as of this encounter
== END 2024-05-19 16:15 | disposition home or self-care (01) ==
LOC: HO.LAB 16:14
PROVIDERS: PCP Physician Assistant; Visit Provider Internal Medicine Endocrinology, Diabetes & Metabolism
DX: C73 Malignant neoplasm of thyroid gland (principal)
CPT/HCPCS: 36415; 84439; 84443

== ENCOUNTER 2024-06-02 11:30 | Outpatient (AMB) | payer OTHER, SELFPAY ==
[2024-06-02 11:42] VITALS: BP 100/70; PULSE 83; O2SAT 96; BMI 34.2
--- NOTE | 2024-06-02 11:42 | MHC.OFFVIS ---
Vital Signs 06/02/24 11:42 Height 4 ft 11 in Weight 169 lb 5.04 oz BMI 34.2 BP 100/70 Blood Pressure Location Rt brachial Position Sitting Pulse 83 Pulse Source Pulse Oximeter Pulse Oximetry (%) 96 Oxygen Delivery Method Room Air Intake Visit Reasons: f/u post-surgical hypothyroidism/thyroid cancer Intake Note: Patient present today for post-surgical Hypothyroidism follow up. Chucking And Sawing Machine Operator Required: Yes Chucking And Sawing Machine Operator Language: Armature Rewinder Services: Chucking And Sawing Machine Operator Present Information Interpreted: non-clinical & clinical Accompanied by: Self / Same As Patient Allergies cat dander Allergy (Verified 06/02/24 11:43) Itching HPI Comments Details: 36 YO F with PMHx thyroid cancer who is seen in consultation at the request of his PCP for Hyothyroidism. She had a left lobectomy in 2014 for hyperfunctioning thyroid nodule at [facility] with incidental discovery of a 1 mm papillary microcarcinoma First diagnosed with Hypothyroidism 2014 Currently using levothyroxine 75 ug . Denies + fatigue, -weight gain, -cold intolerance, -dry skin, -hair loss, -constipation. There is no hx of hyperlipidemia . Denies obstructive sx of goiter . Denies consuming any kelp or seaweed. Denies taking amiodarone. Denies current or desiring to become in near future. Compliance with meds and taken correctly: Menses: nl Biotin: Yes Labs: [facility] Medical History Thyroid cancer Surgical History History of thyroid surgery History of surgery Hx of cholecystectomy Family History Mother Hypertension Father No known health problems Maternal Grandmother Hypertension Heart attack Social History Household Members: Family Household Members Other:: 2 sons Alcohol intake: current Alcohol intake frequency: holidays/special occasions only Patient Tobacco Use Status: Never used Tobacco Physical Exam Vital Signs: BMI result Body Mass Index 34.2 Const Other: Healed scar status post left lobectomy. Right lobe without the presence of palpable nodules Assessment & Plan Assessment & Plan (1) Thyroid cancer: Code(s): C73 - Malignant neoplasm of thyroid gland Category: Medical Plan: Is a 38-year-old female status post left lobectomy with 1 mm micro papillary cancer. Currently on levothyroxine 75 mcg . She appears clinically and biochemically euthyroid. Neck ultrasound shows the absence of any abnormal lymph nodes Plan is to continue the current management. At this point, patient returned to the care of her primary care provider returned back to endocrinology as needed Coding Level of Care Code Est Pt Level 3 (39451) Diagnoses Thyroid cancer C73
--- OUTSIDE RECORDS SUMMARY | 2024-06-02 12:26 | XMS_ITS | Encounter Summary ---
Author Organization [facility] Address [address] [place] [address] Care Team Providers Care Mash Grinder Name Role Phone Tra Dubon Primary Care Provider [phone] Reason for Visit * Reason Onset Date Comments Prescription Refill Request 03/18/2024 Encounter Created in Error 03/18/2024 Encounter Details Date Type Department Care Team (Late st Contact Info) Description 03/18/2024 Erroneous Telephone Encounter [address] [phone] Suresh Parnell RN [address] [place] [address] Social History Tobacco Use Types Packs/Day Years [...] documented as of this encounter Care Teams Mash Grinder Relationship Specialty Start Date End Date Tra Dubon PA [address] [place] [address] PCP - General FAMILY MEDICINEHARVEY 01/17/22 documented as of this encounter
--- OUTSIDE RECORDS SUMMARY | 2024-06-02 12:26 | XMS_ITS | Clinical Summary ---
Author Organization [facility] Address [address] [place] [address] Care Team Providers Care Purchasing/Receiving Name Role Phone Tra Dubon Primary Care Provider [phone] Source Comments PLEASE NOTE, if this patient [...] nausea, vomiting of 1 week duration. Lipase [id number] --> 3900 CT abdomen pelvis report noted [...] Left thyroid lobectomy. SURGEON: Billy Santos M.D. FRANCHISE SALES REPRESENTATIVE: Kerline Burch M.D. Resolved Problems Problem Noted Date Diagnosed Date Resolved Date Acute bacterial conjunctivitis of right eye 01/22/2024 02/21/2024 Encounters Date Type Department Care Team Description 04/14/2024 Interim Notes [address] [phone] Tra Dubon PA Family history of breast cancer (Primary Dx) 03/24/2024 10:20 AM EST Office Visit [address] [phone] Suresh Parnell RN Low back pain without sciatica, unspecified back pain laterality, unspecified chronicity (Primary Dx) 03/24/2024 Travel 03/18/2024 3:00 PM EST Office Visit [address] [phone] Tra Dubon PA Routine general medical examination at a health care facility (Primary Dx); Chronic bilateral low back pain without sciatica; Muscle spasm; Iron deficiency anemia, unspecified iron deficiency anemia type; Immunization due; Hypothyroidism, unspecified type 03/18/2024 Erroneous Telephone Encounter [address] [phone] Suresh Parnell RN 03/18/2024 Travel from Last [...] - Cp G 2-dose series) 11/13/2022 10/16/2022 [id number] ( season) 2023 02/09/2022, 11/21/2020, 10/24/2020 Alcohol [...] Procedure Name Priority Date/Time Associated Diagnosis Comments LAB SCANNED DOCUMENT 05/19/2024 3:00 AM EST IMAGING SCANNED DOCUMENT 04/14/2024 3:00 AM EST IMAGING SCANNED DOCUMENT 04/14/2024 3:00 AM EST REFERRAL SCANNED DOCUMENT 04/01/2024 3:00 AM EST [...] Recently Relevant to Health Maintenance Results * LAB SCANNED DOCUMENT (05/19/2024 3:00 AM EST) Only the most recent of2 resultswithin the time period is included. 05/19/2024 3:00 AM EST us Tra Jagdish PA SCAN LAB Final Result * IMAGING SCANNED DOCUMENT (04/14/2024 3:00 AM EST) Only the most recent of2 resultswithin the time period is included. 04/14/2024 3:00 AM EST us Tra Jagdish PA SCAN IMAGING Final Result * REFERRAL SCANNED DOCUMENT (04/01/2024 3:00 AM EST) 04/01/2024 3:00 AM EST us Tra Jagdish PA SCAN REFERRAL Final Result * CARD SCANNED DOCUMENT (03/24/2024 3:00 AM EST) 03/24/2024 3:00 AM EST us Tra Jagdish PA SCAN ECGS Final Result * LIPID PANEL (09/17/2023 9:23 AM EDT) [facility] Signature CHOLESTEROL, TOTAL 151 <200 mg/dL [facility] HDL CHOLESTEROL 54 > OR = 50 mg/dL [facility] TRIGLYCERIDES 69 <150 mg/dL [facility] LDL-CHOLESTEROL 82 99 mg/dL (calc) [facility] Comment: Reference range: <100 Desirable range <100 mg/dL for primary prevention; ?? <70 mg/dL for patients with CHD or diabetic patients with > or = 2 CHD risk factors. LDL-C is now calculated using the Elizabeth calculation, which is a validated novel method providing better accuracy than the Friedewald equation in the estimation of LDL-C. Eder LEO et al. NELLY. 2013;310(14): 2899-5810 (http://education.TRAFI/faq/YAC648) CHOL/HDLC RATIO 2.8 <5.0 (calc) [employer] NON-HDL CHOLESTEROL 97 <130 mg/dL (calc) [employer] Comment: For patients with diabetes plus 1 major ASCVD risk factor, treating to a non-HDL-C goal of <100 mg/dL (LDL-C of <70 mg/dL) is considered a therapeutic option. Blood Blood / Unknown 09/17/2023 9 :23 AM EDT 09/17/2023 9:24 AM EDT Narrative [employer] - 09/18/2023 5:41 AM EDT FASTING:YES us Damien Galarza PA-C LAB - BLOOD DRAW Final Result [employer] [address] [address], [employer] [address] [address] * COMPREHENSIVE METABOLIC PANEL (09/17/2023 9:23 AM EDT) GLUCOSE 88 65 - 99 mg/dL [employer] [facility] Comment: ?Fasting reference interval UREA NITROGEN (BUN) 14 7 - 25 mg/dL [facility] CREATININE (blood) 0.71 0.50 - 0.97 mg/dL [facility] EGFR 114 > OR = 60 mL/min/1. 73m2 [employer] BUN/CREATININE RATIO SEE NOTE: [employer] [facility] Comment: ?? Not Reported: BUN and Creatinine are within ?? reference range. ? SODIUM 137 135 - 146 mmol/L [employer] POTASSIUM 4.4 3.5 - 5.3 mmol/L [employer] CHLORIDE 104 98 - 110 mmol/L [employer] CARBON DIOXIDE 26 20 - 32 mmol/L [employer] CALCIUM 8.8 8.6 - 10.2 mg/dL [employer] PROTEIN, TOTAL 7.3 6.1 - 8.1 g/dL [employer] ALBUMIN 4.3 3.6 - 5.1 g/dL [employer] GLOBULIN 3.0 1.9 - 3.7 g/dL (calc) [facility] ALBUMIN/GLOBULI N RATIO 1.4 1.0 - 2.5 (calc) [facility] BILIRUBIN, TOTAL 0.4 0.2 - 1.2 mg/dL [facility] ALKALINE PHOSPHATASE 65 31 - 125 U/L [facility] AST 14 10 - 30 U/L [facility] ALT 17 6 - 29 U/L [facility] Blood Blood / Unknown 09/17/2023 9 :23 AM EDT 09/17/2023 9:24 AM EDT Narrative [facility] - 09/18/2023 5:41 AM EDT FASTING:YES us Damien Galarza PA-C LAB - BLOOD DRAW Edited Resul t - Final Performing Organization Address [facility] Co de Phone Number [facility] [address] [address], [employer] [address] [address] * HEPATITIS C AB W/RFLX HCV RNA, QT, RT PCR (08/01/2022 4:19 PM EDT) HEPATITIS C ANTIBODY NON-REACT JACKIE NON-REACT JACKIE [facility] SIGNAL TO CUT-OFF 0.03 <1.00 [employer] Comment: HCV antibody was non-reactive. There is no laboratory evidence of HCV infection. In most cases, no further action is required. However, if recent HCV exposure is suspected, a test for HCV RNA (test code 15396) is suggested. For additional information please refer to http://education.[employer]/faq/YGN28w3 (This link is being provided for informational/ educational purposes only.) Blood Blood / Unknown 08/01/2022 4 :19 PM EDT 08/01/2022 4:19 PM EDT us Tra GABRIEL LAB - BLOOD DRAW Edited Result - Final Performing Organization Address [facility]/ZIP Co de Phone Number [employer] [address] [address], [employer] [address] [place] [address] * HIV 1/2 AG & AB W/RFLX (4TH GEN) (08/01/2022 4:19 PM EDT) HIV AG/AB, 4TH GEN NON-REAC TIVE NON-REAC TIVE [facility] Comment: HIV-1 antigen and HIV-1/HIV-2 antibodies were [...] ?? For additional information please refer to http://education.[employer]/faq/QRC554 (This link is being provided for informational/ educational purposes only.) The performance of this assay has not been clinically validated in patients less than 2 years old. Blood Blood / Unknown 08/01/2022 4 :19 PM EDT 08/01/2022 4:19 PM EDT Tra GABRIEL LAB - BLOOD DRAW Final Result [facility] [address] [address], [employer] [address] [address] from Last 3 Months or Most Recently Relevant to Health Maintenance Insurance [employer] Member Subscriber Plan / Payer (Ef fective 2023-Present) Name:Ty Liu Relation to Subscriber:Self Name:Ty Liu Payer ID:[id number] Type:Indemnity Address: [address] [address] Care Teams Purchasing/Receiving Relationship Specialty Start Date End Date Tra Dubon PA [address] [place] [address] PCP - General [facility]ILY [facility]INE[facility] 01/17/22
== END 2024-06-02 11:52 | disposition home or self-care (01) ==
PROVIDERS: PCP Physician Assistant; Visit Provider Internal Medicine Endocrinology, Diabetes & Metabolism
DX: C73 Malignant neoplasm of thyroid gland (principal)
CPT/HCPCS: 99213

== ENCOUNTER → 2024-06-02 11:30 | Outpatient (BNVA) | payer OTHER, SELFPAY | PROVIDERS: PCP Physician Assistant; Visit Provider Internal Medicine Endocrinology, Diabetes & Metabolism | DX: C73 Malignant neoplasm of thyroid gland (principal) | CPT/HCPCS: 99212 ==